=== PATIENT | male | born 1965 | race Hispanic/Latino ===

== ENCOUNTER 2018-10-22 11:46 | Inpatient (IN) | payer BC ==
[2018-10-22] MEDS ORDERED: Iopamidol 370 76% 100 ML VIAL ONE (11:52)
[2018-10-22] MEDS ORDERED: Iopamidol 370 76% 50 ML VIAL FS ONE (11:52)
[2018-10-22] MEDS ORDERED: Heparin 5,000 UNITS/ML VIAL ONE (12:02)
[2018-10-22 12:23] LABS: Prothrombin Time 12.8 SEC (12.0-14.7)
[2018-10-22 12:24] LABS: PTT 29.3 SEC (22.9-36.1)
[2018-10-22 12:30] LABS: #Basophils 0.1 thou/uL (0.0-0.2); #Lymphocytes 1.9 thou/uL (1.20-3.40); #Monocytes 1.2 thou/uL (0.11-0.59); #Neutrophils 6.9 thou/uL (1.40-6.50); %Eosinophils 0.3 % (0.0-10.0); %Lymphocytes 18.3 % (21.0-51.0); %Monocytes 12.1 % (0.0-10.0); %Neutrophils 68.4 % (42.0-75.0); Anisocytosis SLIGHT = 6-15 cells (100X) (0-5/hpf); MDiff Complete? YES; Mean Corpuscular Hemoglobin 24.3 pg (27.0-31.0); Mean Corpuscular Volume 78.2 fL (78.0-98.0); Mean Platelet Volume 7.5 fL (7.4-10.4); Platelet Count 244 thou/uL (130-400); Platelet Morphology Comment Appears Adequate; RBC Distribution Width 14.4 % (11.5-14.5); Red Blood Cell (RBC) Count 6.58 mill/uL (4.70-6.10); Target Cells SLIGHT = 2-5 cells (100X) (0-1/hpf); White Blood Cell (WBC) Count 10.2 thou/uL (4.8-10.8)
[2018-10-22 12:34] LABS: ALT (SGPT) 26 U/L (8-55); AST (SGOT) 98 U/L (5-34); Albumin 4.1 g/dL (3.5-5.0); Alkaline Phosphatase 75 U/L (40-150); Anion Gap 12 mmol/L (10-20); BUN (Urea Nitrogen) 10 mg/dL (8.4-25.7); Bilirubin, Total 0.6 mg/dL (0.2-1.2); Calc. Creatinine Clearance 0 mL/min (70-130); Calcium 9.1 mg/dL (7.8-10.44); Carbon Dioxide 27 mmol/L (22-29); Chloride 105 mmol/L (98-107); Estimated GFR-MDRD Greater than 90; Globulin 3.4 g/dL (2.4-3.5); Glucose 90 mg/dL (70-105); Lipase 19 U/L (8-78); Potassium 3.9 mmol/L (3.5-5.1); Protein, Total 7.5 g/dL (6.0-8.3); Sodium 140 mmol/L (136-145)
[2018-10-22 13:00] LABS: CKMB 157.1 ng/mL (0-6.6)
--- NOTE | 2018-10-22 13:17 | RAD ---
PORTABLE CHEST: HISTORY: Chest pain. FINDINGS: Heart size is within normal limits for portable technique. Mediastinal structures appear unremarkabl e. The lungs are clear of infiltrates. No signs of failure. IMPRESSION: No active intrathoracic disease. POS: [facility]
[2018-10-22] MEDS ORDERED: Milk Of Magnesia 30 ML UDCUP PO PRN (13:25)
[2018-10-22] MEDS ORDERED: traMADol HCl 50 MG TAB PO PRN (13:25)
[2018-10-22] MEDS ORDERED: Mag-Al 1200 mg/1200 mg/30 ML UDCUP PO PRN (13:25)
[2018-10-22] MEDS ORDERED: Acetaminophen/Codeine 30-300mg Tablet PO PRN (13:25)
[2018-10-22] MEDS ORDERED: Aggrastat 12.5 MG/250 ML 250 ML IVPB SCH (13:30)
[2018-10-22] MEDS ORDERED: Sodium Chloride 0.9% 1,000 ML IV SCH (13:30)
[2018-10-22] MEDS ORDERED: Atorvastatin Calcium 40 MG TAB PO SCH (21:00)
--- NOTE | 2018-10-22 21:11 | CON ---
DATE OF CONSULTATION: 10/22/2018 CHIEF COMPLAINT: Acute myocardial infarction. HISTORY OF PRESENT ILLNESS: Mr. Pretty is a very pleasant 53-year-old gentleman, who recently presented with chest pain. The chest pain has been intermittent over the last several days. It became constant today. He presented to the emergency room with acute ST-segment elevation. He was transferred to [place] for urgent coronary angiography. PAST MEDICAL HISTORY: Hyperlipidemia. PAST SURGICAL HISTORY: Previous knee surgery. SOCIAL HISTORY: Positive for alcohol, social use. No tobacco use. He is currently . CURRENT HOME MEDICATIONS: Include Zetia. ALLERGIES: STATIN THERAPY. REVIEW OF SYSTEMS: A 10-point review of systems was reviewed and as above, otherwise negative. PHYSICAL EXAMINATION: GENERAL: Patient is a pleasant 53-year-old gentleman, who is in no acute distress. The patient appears their stated age. VITAL SIGNS: Blood pressure 120/70, pulse 80, respiration 20. NEUROLOGIC: The patient is alert and oriented x3 with no focal neurologic deficits. HEENT: Sclerae without icterus. Mouth has moist mucous membranes with normal pallor. NECK: No JVD. Carotid upstroke brisk. No bruits bilaterally. LUNGS: Clear to auscultation with unlabored respirations. BACK: No scoliosis or kyphosis. CARDIAC: Regular rate and rhythm with normal S1 and S2. No S3 or S4 noted. No significant rubs, murmurs, thrills, or gallops noted throughout the precordium. PMI is not displaced. There is no parasternal heave. ABDOMEN: Soft, nontender, nondistended. No peritoneal signs present. No hepatosplenomegaly. No abnormal striae. EXTREMITIES: 2+ femoral and 2+ dorsalis pedis pulses. No cyanosis, clubbing, or edema. SKIN: No gross abnormalities. LABORATORY DATA: Pertinent labs pending. EKG shows normal sinus rhythm with ST-segment elevation noted inferiorly. IMPRESSION: Acute myocardial infarction. RECOMMENDATIONS: At this point, we will recommend urgent coronary angiography with PCI. I discussed proceeding in full detail with Mr. Pretty. Risks include, but not limited to consent. All questions were answered. Also discussed drug-coated versus [id number] stent placement. He is whether he can take Plavix for at least a year. We therefore opted with bare metal stent placement. Further recommendation will be pending the above. Job ID: [id number]
[2018-10-23 05:21] LABS: #Basophils 0.1 thou/uL (0.0-0.2); #Eosinphils 0.1 thou/uL (0.0-0.7); #Lymphocytes 2.2 thou/uL (1.20-3.40); #Monocytes 0.9 thou/uL (0.11-0.59); #Neutrophils 5.3 thou/uL (1.40-6.50); %Basophils 0.6 % (0.0-1.0); %Eosinophils 0.7 % (0.0-10.0); %Lymphocytes 26.2 % (21.0-51.0); %Monocytes 10.9 % (0.0-10.0); %Neutrophils 61.6 % (42.0-75.0); Hemoglobin 13.3 g/dL (14.0-18.0); Mean Corpuscular HGB CONC 33.2 g/dL (32.0-36.0); Mean Corpuscular Hemoglobin 25.5 pg (27.0-31.0); Mean Platelet Volume 7.8 fL (7.4-10.4); Platelet Count 221 thou/uL (130-400); RBC Distribution Width 14.4 % (11.5-14.5); Red Blood Cell (RBC) Count 5.22 mill/uL (4.70-6.10); White Blood Cell (WBC) Count 8.5 thou/uL (4.8-10.8)
[2018-10-23 05:32] VITALS: BMI 26.6
[2018-10-23 05:43] LABS: ALT (SGPT) 30 U/L (8-55); AST (SGOT) 139 U/L (5-34); Albumin 3.3 g/dL (3.5-5.0); Alkaline Phosphatase 66 U/L (40-150); Anion Gap 12 mmol/L (10-20); BUN (Urea Nitrogen) 9 mg/dL (8.4-25.7); Bilirubin, Total 0.6 mg/dL (0.2-1.2); Calc. Creatinine Clearance 134 mL/min (70-130); Calcium 8.3 mg/dL (7.8-10.44); Carbon Dioxide 20 mmol/L (22-29); Chloride 109 mmol/L (98-107); Estimated GFR-MDRD Greater than 90; Globulin 2.8 g/dL (2.4-3.5); Glucose 91 mg/dL (70-105); Potassium 4.2 mmol/L (3.5-5.1); Protein, Total 6.1 g/dL (6.0-8.3); Sodium 137 mmol/L (136-145)
[2018-10-23] MEDS: Clopidogrel Bisulfate 75 MG TAB PO SCH (09:08)
[2018-10-23] MEDS: Carvedilol 3.125 MG TAB PO SCH (20:05)
[2018-10-23] MEDS ORDERED: Simvastatin 5 MG TAB PO SCH (21:00)
--- NOTE | 2018-10-23 22:49 | HP ---
CHIEF COMPLAINT: Chest pressure. HISTORY OF PRESENT ILLNESS: This is a 53-year-old gentleman with a history of hypertension and hyperlipidemia, who presented to my office with 4 to 5 days of persistent chest pressure. The patient states that the symptoms would come and go and then became more persistent and presented to my office. In my office, he was comfortable, had normal blood pressures and normal vitals, but due to the chest pressure, an EKG was done which revealed abnormal ST elevations in his inferior leads. He was sent to the emergency department urgently and was admitted at that point and underwent emergent cardiac catheterization by Dr. Amaya. He tolerated the procedure well. He eventually ruled in for myocardial infarction and his diagnostic cardiac catheterization revealed obstruction of the right coronary artery, is now being admitted for monitoring and further evaluation. Following the procedure, he has been chest pain free and feeling back to his baseline. PAST MEDICAL HISTORY: Hypertension and hyperlipidemia. MEDICATIONS: Include Zetia. ALLERGIES: TO STATIN THERAPY WHERE HE HAD SEVERE MUSCLE WEAKNESS WITH LIPITOR IN THE PAST. PAST SURGICAL HISTORY: Knee repair. SOCIAL HISTORY: Occasional alcohol socially. No tobacco use. He is . He works for [employer]. REVIEW OF SYSTEMS: As per the history of present illness. GENERAL: Denies any recent fevers, chills, or recent illness. HEENT: No headache, visual or hearing changes. CARDIAC: As per the history of present illness. PULMONARY: Denies cough or hemoptysis. GI: Denies nausea, vomiting, abdominal pain, melena, hematochezia. : Denies dysuria or hematuria. NEUROLOGIC: No weakness, seizures, or syncope. PHYSICAL EXAMINATION: VITAL SIGNS: Temperature 98.4, pulse is 77, respirations 20, blood pressure 136/88, pulse ox 98% on room air. GENERAL: He is awake, alert, in no acute distress. Speech is clear. NECK: Supple. HEART: Regular rate and rhythm. LUNGS: Clear. ABDOMEN: Soft. EXTREMITIES: With no edema. NEUROLOGIC: Intact. LABORATORY DATA: Reviewed. Troponin I was elevated at 6.6. Hemoglobin and hematocrit of 13.3 and 40.2. Cardiac catheterization as reported. ASSESSMENT AND PLAN: This is a 53-year-old gentleman with a history of hypertension, hyperlipidemia, and strong family history of coronary artery disease with his father passing away from a myocardial infarction in his 60s and now with a ST-elevation myocardial infarction, status post cardiac catheterization with stent placement. 1. Myocardial infarction. Further plan per Cardiology. 2. Coronary artery disease, status post stent placement with bare metal stent. We will continue Plavix as per Dr. Amaay. 3. Hypertension. We will continue to monitor. Starting Coreg 3.125 mg b.i.d. 4. Hyperlipidemia. Discussed risks with the patient. We will check fasting lipids in the morning. May try Livalo and see if he has fewer side effects than he did with the Lipitor. If not, consider Renvela if okay with Dr. Amaya. Job ID: [id number]
[2018-10-24] MEDS ORDERED: Sodium Chloride 0.9% 10 ML ONE (08:12)
[2018-10-24] MEDS: Carvedilol 3.125 MG TAB PO SCH (08:51)
[2018-10-24] MEDS: Clopidogrel Bisulfate 75 MG TAB PO SCH (08:51)
--- NOTE | 2018-10-24 09:12 | PRG ---
DATE OF SERVICE: 10/23/2018 SUBJECTIVE: Mr. Pretty is doing well. No current complaints. No chest pain or pressure noted. Blood pressure and heart rate appeared more stable. OBJECTIVE: VITAL SIGNS: Blood pressure 136/88, pulse 77, temperature 98.4. LUNGS: Clear to auscultation. HEART: Regular rate and rhythm. ABDOMEN: Soft, nontender, and nondistended. EXTREMITIES: No edema. IMPRESSION: Acute . Job ID: [id number]
--- NOTE | 2018-10-24 09:44 | DIS ---
DATE OF ADMISSION: 10/22/2018 DATE OF DISCHARGE: 10/24/2018 ADMISSION DIAGNOSIS: ST-elevation myocardial infarction. DISCHARGE DIAGNOSES: ST-elevation myocardial infarction with total obstruction of the right coronary artery, status post stent placement. PROCEDURES: Cardiac catheterization by Dr. Amaya, telemetry monitoring, ICU monitoring. CONSULTATIONS: Dr. Amaya. HOSPITAL COURSE: This is a 53-year-old gentleman with a history of hypertension, hyperlipidemia, and strong family history of heart disease in his father, who presented to my office on the day of admission with 3 to 4 days of chest pressure, symptoms would come and go. In my office, he had abnormal EKG and was sent to the emergency department. He ruled in for an VT, was sent directly [facility] with Dr. Amaya, where the patient underwent a cardiac catheterization, found to have 100% blockage of his right coronary artery, had bare metal stents placed. The patient tolerated the procedure. The night following the procedure, he did have one episode of asymptomatic ventricular tachycardia, resolved spontaneously. He has had no further episodes. He is walking in the [place] without difficulty. Denies chest pain. Denies shortness of breath. Denies lightheadedness. He is anxious to go home. DISCHARGE PHYSICAL EXAMINATION: VITAL SIGNS: Temperature 98.7, pulse of 55 to 63, respirations 16, blood pressure 117/74, and pulse ox is 94% to 96% on room air. GENERAL: He is awake and alert. No acute distress. Speech is clear. NECK: Supple. HEART: Regular rate and rhythm. LUNGS: Clear. CHEST: Nontender. ABDOMEN: Soft. EXTREMITIES: There is no edema. DISCHARGE LABORATORY DATA: Reviewed. Troponin I was 6.6 on the day of admission. His renal function is normal with a GFR greater than 90. DISCHARGE MEDICATIONS: Include; 1. Aspirin 81 mg daily. 2. Coreg 3.125 mg b.i.d. 3. Plavix 75 mg daily. 4. Pravachol 20 mg daily. FOLLOW UP INSTRUCTIONS: The patient to follow up with cardiac rehab as an outpatient. Follow up in my office in one week and with Dr. Amaya in one week. Job ID: [id number]
[2018-10-24 12:57] VITALS: TEMP 97.8
[2018-10-24 14:53] VITALS: BP 132/91
--- NOTE | 2018-10-24 15:26 | PDOC.CTH ---
Cardiology Progress Note - Subjective Doing well. No complaints. - Objective Vital Signs Temp Pulse Pulse Pulse Resp BP BP 10/24/18 11:50 97.8 F 68 14 10/24/18 11:26 63 69 132/91 H 136/87 10/24/18 08:47 98.0 F 75 16 10/24/18 04:00 98.7 F 55 L 16 BP Pulse Ox Pulse Ox Pulse Ox 10/24/18 11:50 126/87 96 10/24/18 11:26 99 97 10/24/18 08:47 134/78 96 10/24/18 04:00 117/74 94 L Weight 152 lb 6.4 oz 10/23/18 10/24/18 10/25/18 06:59 06:59 06:59 Intake Total 1880 1700 Output Total 1825 3075 Balance 55 -1375 - Physical Examination General/Neuro: alert & oriented x3, NAD Neck: carotid US brisk, no JVD present Lungs: CTA, unlabored respirations Heart: PMI normal, RRR Abdomen: NT/ND, soft Extremities: + femoral B - Labs Result Diagrams: 10/23/18 04:13 10/23/18 04:13 Troponin/CKMB CK-MB (CK-2) 157.1 ng/mL (0-6.6) H* 10/22/18 11:59 Troponin I 6.628 ng/mL (< 0.028) H* 10/22/18 11:59 - Assessment/Plan AMI Hyperlipidemia BB, statin, ASA, plavix ok for dc Fu in 1-2 weeks
--- NOTE | 2018-10-24 20:50 | EKG ---
Test Reason : POST STENTS X2 Blood Pressure : / mmHG Vent. Rate : 060 BPM Atrial Rate : 060 BPM P-R Int : 172 ms QRS Dur : 086 ms QT Int : 442 ms P-R-T Axes : 034 026 029 degrees QTc Int : 442 ms Normal sinus rhythm Septal infarct , age undetermined Inferior infarct , possibly acute * ACUTE DE * Consider right ventricular involvement in acute inferior infarct Abnormal ECG No previous ECGs available Confirmed by Jazmin SINGH ([id number]) on 10/24/2018 8:49:46 PM Referred By: COLT Confirmed By:Jazmin SINGH
--- NOTE | 2018-10-24 20:56 | EKG ---
Test Reason : Blood Pressure : / mmHG Vent. Rate : 069 BPM Atrial Rate : 069 BPM P-R Int : 180 ms QRS Dur : 084 ms QT Int : 410 ms P-R-T Axes : 047 020 -49 degrees QTc Int : 439 ms Normal sinus rhythm Inferior infarct (cited on or before 22-OCT-2018) * ACUTE UT * Consider right ventricular involvement in acute inferior infarct Abnormal ECG When compared with ECG of 22-OCT-2018 14:04, (Unconfirmed) No significant change was found Confirmed by Jazmin SINGH ([id number]) on 10/24/2018 8:55:58 PM Referred By: COLT Confirmed By:Jazmin SINGH
== END 2018-10-24 16:19 | disposition home or self-care (01) | DRG 249 ==
LOC: CCL 11:46 → SCSER 11:46 → IMCU/EMU 18:07 → 2NO 10-23 20:48
PROVIDERS: ADMIT Internal Medicine Cardiovascular Disease; ATTEND Internal Medicine Cardiovascular Disease
PROC: 02703DZ Dilation of Coronary Artery, One Artery with Intraluminal Device, Percutaneous Approach (ICD-10-PCS; principal; 2018-10-22)
PROC: 4A023N7 Measurement of Cardiac Sampling and Pressure, Left Heart, Percutaneous Approach (ICD-10-PCS; 2018-10-22)
PROC: B2111ZZ Fluoroscopy of Multiple Coronary Arteries using Low Osmolar Contrast (ICD-10-PCS; 2018-10-22)
PROC: B2151ZZ Fluoroscopy of Left Heart using Low Osmolar Contrast (ICD-10-PCS; 2018-10-22)
DX: I21.3 ST elevation (STEMI) myocardial infarction of unspecified site (principal); I25.82 Chronic total occlusion of coronary artery; I10 Essential (primary) hypertension; E78.5 Hyperlipidemia, unspecified; I25.10 Atherosclerotic heart disease of native coronary artery without angina pectoris
CPT/HCPCS: 36415; 71045; 76942; 80053; 82553; 83690; 84484; 85025; 85347; 85610; 85730; 92928; 92977; 93005; 93010; 93458; 93798; 96374; 99152; 99153; C1725; C1769; C1876; C1887; J1644